=== PATIENT | female | born 1990 | race African-American/Black ===

== ENCOUNTER 2019-03-17 00:22 | Emergency (ER) | payer OTHER ==
[~2019-03-17] VITALS: Ht 165.1 cm; Wt 83.9 kg
[2019-03-17 00:59] VITALS: BP 117/79
--- NOTE | 2019-03-17 00:59 | NUR ---
ED Nurse Note: PT WALKED IN C/O GENEREALIZED BODY ACHE X 1 DAY, PT REPORTS SHE JUST WOKE UP WITH PAIN, DENIES ANY RECENT INJURIES, DENIES COUGH NOR FEVER BUT REPORTS NAUSEA, DENIES VOMITING, WILL CONT MONITOR.
[2019-03-17] MEDS ORDERED: ZITHROMAX250 MG ORAL (01:01)
[2019-03-17] MEDS ORDERED: IBUPROFEN600 MG ORAL (01:01)
--- NOTE | 2019-03-17 01:02 | Emergency Room Report ---
History of Present Illness General Chief Complaint: Pain Source: Patient Present Illness HPI Is a 28-year-old female with no past medical history. She presents with chief complaint of body pain aches and chills. Onset for about a week now. Started coughing yesterday. Has upper back pain. Coughing is productive of sputum. Also with stuffy nose congestion. Worse with inspiration. Better with rest. Subjective fever and chills. Body pain is 7 out of 10. [place] like she has no energy. Allergies: Coded Allergies: No Known Allergies (Unverified , 03/17/19) Patient History Past Medical History: none, see triage record, old chart reviewed Past Surgical History: none Pertinent Family History: none Social History: Denies: smoking Last Menstrual Period: 03/14/19 Now: No : 5 Para: 4 Immunizations: other Reviewed Nursing Documentation: PMH: Agreed; PSxH: Agreed Nursing Documentation-PM Past Medical History: No History, Except For Hx Cardiac Problems: No - ANEMIA Review of Systems Constitutional: Reports: chills, fever, malaise Eye: Denies: eye pain, blurred vision ENT: Reports: nose congestion; Denies: ear pain, throat swelling Respiratory: Reports: cough, sputum; Denies: shortness of breath Cardiovascular: Denies: chest pain, palpitations Gastrointestinal: Denies: abdominal pain, diarrhea, nausea, vomiting Musculoskeletal: Denies: back pain, joint pain Skin: Denies: rash Neurological: Denies: headache, numbness Endocrine: Denies: increased thirst, increased urine Hematologic/Lymphatic: Denies: easy bruising All Other Systems: negative except mentioned in HPI Physical Exam Vital Signs Date Time Temp Pulse Resp B/P (MAP) Pulse Ox O2 Delivery O2 Flow Rate FiO2 03/17/19 00:36 99.3 95 18 117/79 (92) 95 Room Air Vitals normal Sp02 EP Interpretation: reviewed, normal General Appearance: well appearing, no apparent distress, alert Head: normocephalic, atraumatic Eyes: bilateral eye PERRL, bilateral eye EOMI ENT: hearing grossly normal, normal pharynx Neck: full range of motion, supple, no meningismus Respiratory: chest non-tender, lungs clear, normal breath sounds Cardiovascular #1: regular rate, rhythm, no murmur Gastrointestinal: normal bowel sounds, non tender, no mass, no organomegaly, no bruit, non-distended Musculoskeletal: back normal, gait/station normal, normal range of motion Psychiatric: mood/affect normal Medical Decision Making Diagnostic Impression: Primary Impression: Upper respiratory infection Qualified Codes: J06.9 - Acute upper respiratory infection, unspecified ER Course With an upper restaurant infection. Most likely viral but ongoing for almost 2 weeks we will put on antibiotics. No evidence of any sepsis, meningitis, pneumonia to name a few. Last Vital Signs Date Time Temp Pulse Resp B/P (MAP) Pulse Ox O2 Delivery O2 Flow Rate FiO2 03/17/19 00:36 99.3 95 18 117/79 (92) 95 Room Air Status: unchanged Disposition: HOME, SELF-CARE Condition: Stable Scripts Azithromycin* (ZITHROMAX*) 250 Mg Tablet 250 MG ORAL DAILY, #6 TAB 0 Refills Take two tables once daily for 1 day, then one tablet once daily for 4 days. Prov: Félix Kenyon MD 03/17/19 Ibuprofen* (MOTRIN*) 600 Mg Tablet 600 MG ORAL THREE TIMES A DAY, #30 TAB 0 Refills Prov: Félix Kenyon MD 03/17/19 Additional Instructions: Increase fluids. Follow-up with your doctor in 7 days. Return if worse. Félix Kenyon MD Mar 17, 2019 01:02
[2019-03-17 01:07] VITALS: BP 117/79
--- NOTE | 2019-03-17 01:07 | NUR ---
ED Nurse Note: PT CLEARED TO BE D/C PER ERMD, PT DISCHARGE AND AFTERCARE INSTRUCTION PROVIDED W/ PRESCRIPTION, PT EDUCATION DONE VIA DISCUSSION AND HANDOUT, PT ADVISED TO FOLLOW UP WITH PCP OR RETURN TO ED IF CHANGES IN CONDITION, VSS, AMBULATORY W/ STEADY GAIT, LEFT W/ ALL BELONGINGS.
== END 2019-03-17 01:07 | disposition home or self-care (01) ==
LOC: EMR 00:57
DX: J06.9 Acute upper respiratory infection, unspecified (principal); M54.6 Pain in thoracic spine
CPT/HCPCS: 99282